=== PATIENT | female | born 1950 | race Caucasian/White ===

== ENCOUNTER → 2016-03-12 | Outpatient (REF) | payer MEDICARE, MEDICAID ==
[~2016-03-12] MED LIST: ADVI200C5 PO; ALBU17IN INH; ARTISOL2 OU; ATEN50TA2 PO; CENTTAB PO; FLUTISP; LORATAB PO; NEXI40CA PO; REST0.05 OU; SIMV40TA2 PO; SYMB16INH INH; TRIC145T PO; VITA1CAP6 PO; VITA400T2 PO; XANA0.25 PO
[2016-03-12 13:24] LABS: MEAN CORPUSCULAR HEMOGLOBIN 32.3 pg (27.0-33.0); MEAN CORPUSCULAR HGB CONC 33.5 g/dl (32.0-36.5); MEAN CORPUSCULAR VOLUME 96.6 fl (80.0-96.0); RED CELL DISTRIBUTION WIDTH 12.6 % (11.5-14.5); WHITE BLOOD COUNT 6.8 K/mm3 (4.0-10.0)
[2016-03-12 14:15] LABS: ALBUMIN 3.7 GM/DL (3.2-5.2); ALBUMIN/GLOBULIN RATIO 0.95 (1.00-1.93); ALKALINE PHOSPHATASE 82 U/L (45-117); ALT/SGPT 52 U/L (12-78); ANION GAP 11 MEQ/L (8-16); AST/SGOT 39 U/L (15-37); BILIRUBIN,TOTAL 0.5 MG/DL (0.2-1.0); BLOOD UREA NITROGEN 15 MG/DL (7-18); CALCIUM LEVEL 8.8 MG/DL (8.8-10.2); CARBON DIOXIDE LEVEL 24 MEQ/L (21-32); CHLORIDE LEVEL 105 MEQ/L (98-107); GLOMERULAR FILTRATION RATE > 60.0 (>45); GLUCOSE, FASTING 99 MG/DL (80-110); POTASSIUM SERUM 4.5 MEQ/L (3.5-5.1); SODIUM LEVEL 140 MEQ/L (136-145); TOTAL PROTEIN 7.6 GM/DL (6.4-8.2)
== END ==
LOC: M SFHCPLAZ 10:27
PROVIDERS: ATTEND Family Medicine
DX: M62.81 Muscle weakness (generalized) (principal); E55.9 Vitamin D deficiency, unspecified
CPT/HCPCS: 36415; 80053; 82306; 84443; 85027; G0463

== ENCOUNTER → 2016-08-03 | Outpatient (CLI) | payer MEDICARE, MEDICAID ==
[~2016-08-03] MED LIST changes: -TRIC145T PO; +TRIC145T22 PO
--- NOTE | 2016-08-05 15:03 | DEXA ---
AP SPINE L1 - L4 1.211 0.1 1.7 LT FEMUR TOTAL 1.026 0.1 1.4 RT FEMUR TOTAL 1.070 0.5 1.8 TOTAL BODY TOTAL OTHER DUAL FEMUR FRAX* ASSESSMENT Risk factors: History of adult fractures. 10 year probability of fracture Major osteoporotic fracture 14.2 % Hip fracture 1.5 % COMMENTS: Normal bone densitometry of the spine. Normal bone densitometry of the right hip. There is low bone density of the left hip. The increased density of the spine does not represent a significant change. The increased density of the left hip does not represent a significant change. The increased density of the right hip does not represent a significant change. The density of the spine has increased 3.2% since the initial exam on 2000. The spine density has increased 1.1% since the most recent exam on 01/04/2012. The density of the left hip has increased 7.2% since the initial exam on 2000. The density of the left hip has increased 1.1% since the most recent exam on 01/2012. The density of the right hip has increased 6.4% since the initial exam on 2000. The density of the right hip has increased 1.8% since the most recent exam on . FOLLOW-UP: Recommendation for the next bone density exam: 2 years. RL
== END ==
LOC: M WHC 11:21
PROVIDERS: ATTEND Family Medicine
DX: Z13.820 Encounter for screening for osteoporosis (principal); M85.88 Other specified disorders of bone density and structure, other site

== ENCOUNTER → 2017-03-17 | Outpatient (REF) | payer MEDICARE, MEDICAID ==
[2017-03-17 13:40] LABS: ANION GAP 5 MEQ/L (8-16); BLOOD UREA NITROGEN 14 MG/DL (7-18); CALCIUM LEVEL 8.8 MG/DL (8.8-10.2); CARBON DIOXIDE LEVEL 30 MEQ/L (21-32); CHLORIDE LEVEL 103 MEQ/L (98-107); CREATININE FOR GFR 0.77 MG/DL (0.55-1.02); GLOMERULAR FILTRATION RATE > 60.0 (>45); GLUCOSE, FASTING 144 MG/DL (70-100); POTASSIUM SERUM 4.6 MEQ/L (3.5-5.1); SODIUM LEVEL 138 MEQ/L (136-145)
== END ==
LOC: M SFHCPLAZ 10:39
DX: I10 Essential (primary) hypertension (principal); E55.9 Vitamin D deficiency, unspecified
CPT/HCPCS: 82306

== ENCOUNTER → 2017-10-26 | Outpatient (CLI) | payer MEDICARE, MEDICAID ==
[2017-10-26 10:08] LABS: ANION GAP 9 MEQ/L (8-16); BLOOD UREA NITROGEN 13 MG/DL (7-18); CALCIUM LEVEL 9.1 MG/DL (8.8-10.2); CARBON DIOXIDE LEVEL 27 MEQ/L (21-32); CHLORIDE LEVEL 104 MEQ/L (98-107); CHOLESTEROL LEVEL 215 MG/DL (<200); CHOLESTEROL RISK RATIO 6.323 (<5); CREATININE FOR GFR 0.81 MG/DL (0.55-1.30); GLOMERULAR FILTRATION RATE > 60.0 (>45); GLUCOSE, FASTING 227 MG/DL (70-100); HDL CHOLESTEROL 34 MG/DL (>40); NON-HDL-C 181 MG/DL; POTASSIUM SERUM 4.1 MEQ/L (3.5-5.1); SODIUM LEVEL 140 MEQ/L (136-145); TRIGLYCERIDES LEVEL 1118 MG/DL (<150)
[2017-10-26 10:12] LABS: MAU/CREAT RATIO 111.1 MCG/MG (0.0-30.0)
[2017-10-26 10:23] LABS: TOTAL 25(OH) VITAMIN D 54.9 NG/ML (30.0-100.0)
== END ==
LOC: M LAB 08:41
DX: E78.5 Hyperlipidemia, unspecified (principal); Z79.899 Other long term (current) drug therapy
CPT/HCPCS: 82306

== ENCOUNTER → 2017-10-29 | Outpatient (CLI) | payer MEDICARE, MEDICAID ==
[2017-10-29 10:48] LABS: ESTIMATED AVERAGE GLUCOSE 226 MG/DL (60-110); HEMOGLOBIN A1c 9.5 %
== END ==
LOC: M LAB 08:21
DX: R73.09 Other abnormal glucose (principal)
CPT/HCPCS: 83036

== ENCOUNTER → 2018-03-21 | Outpatient (CLI) | payer MEDICARE, MEDICAID ==
[2018-03-21 11:51] LABS: HEMOGLOBIN A1c 6.3 %
== END ==
LOC: M LAB 10:28
PROVIDERS: ATTEND Physician Assistant
DX: E11.9 Type 2 diabetes mellitus without complications (principal)

== ENCOUNTER → 2018-03-25 | Outpatient (REF) | payer MEDICARE, MEDICAID ==
[2018-03-25 13:56] LABS: MALB URINE SIEMENS 62.1 MG/L; MAU/CREAT RATIO 41.4 MCG/MG (0.0-30.0)
== END ==
LOC: M SFHCPLAZ 10:49
PROVIDERS: ATTEND Family Medicine
DX: E11.9 Type 2 diabetes mellitus without complications (principal)

== ENCOUNTER → 2018-06-28 | Outpatient (CLI) | payer MEDICARE, MEDICAID ==
[~2018-06-28] MED LIST changes: +FLUT50SP17; -FLUTISP; +GLIP2.5T6 PO
[2018-06-28 10:10] LABS: HEMOGLOBIN A1c 6.3 %
[2018-06-28 10:14] LABS: BLOOD UREA NITROGEN 17 MG/DL (7-18); CALCIUM LEVEL 8.9 MG/DL (8.8-10.2); CARBON DIOXIDE LEVEL 30 MEQ/L (21-32); CHLORIDE LEVEL 105 MEQ/L (98-107); CREATININE FOR GFR 0.81 MG/DL (0.55-1.30); GLOMERULAR FILTRATION RATE > 60.0 (>45); GLUCOSE, FASTING 158 MG/DL (70-100); POTASSIUM SERUM 4.2 MEQ/L (3.5-5.1); SODIUM LEVEL 139 MEQ/L (136-145)
[2018-06-28 10:18] LABS: MALB URINE SIEMENS 81.7 MG/L; MAU/CREAT RATIO 74.9 MCG/MG (0.0-30.0)
== END ==
LOC: M LAB 09:07
PROVIDERS: ATTEND Family Medicine
DX: E11.9 Type 2 diabetes mellitus without complications (principal); I10 Essential (primary) hypertension; R80.9 Proteinuria, unspecified

== ENCOUNTER 2018-07-02 21:09 | Emergency (ER) | payer MEDICARE, MEDICAID ==
[~2018-07-02] VITALS: Ht 152.4 cm; Wt 72.8 kg
[~2018-07-02 21:09] MED LIST changes: -GLIP2.5T6 PO
[2018-07-02] MEDS ORDERED: KETOROLAC 60 MG/2 ML VIAL (J1885) IM ONE (21:45)
[2018-07-02 22:03] VITALS: BP 157/84
--- NOTE | 2018-07-02 22:10 | REPVR ---
EXAM: CT Thoracic Spine Without Contrast EXAM DATE/TIME: 07/02/2018 9:30 PM CLINICAL HISTORY: 68 years old, female; Pain in thoracic spine; Without myelpathy or radiculopathy; Additional info: Trauma TECHNIQUE: Imaging protocol: Axial computed tomography images of the thoracic spine without intravenous contrast. Coronal and sagittal reformatted images were created and reviewed. Radiation optimization: All CT scans at this facility use at least one of these dose optimization techniques: automated exposure control; mA and/or kV adjustment per patient size (includes targeted exams where dose is matched to clinical indication); or iterative reconstruction. COMPARISON: No relevant prior studies available. FINDINGS: Vertebrae: Surgery kyphotic curvature of the thoracic spine. Diffuse degenerative spondylosis. Status post multilevel laminectomy in the mid thoracic spine. Discs/Spinal canal/Neural foramina: Disc space narrowing and intervertebral osteophytes throughout the thoracic spine. Soft tissues: Unremarkable. IMPRESSION: Degenerative spondylosis. No acute findings. Electronically signed by: Johan Lin On 07/02/2018 22:10:16 PM
--- NOTE | 2018-07-02 22:14 | REPVR ---
EXAM: CT Lumbar Spine Without Contrast EXAM DATE/TIME: 07/02/2018 9:30 PM CLINICAL HISTORY: 68 years old, female; Injury or trauma; Fall; Initial encounter; Blunt trauma (contusions or hematomas); Additional info: Trauma fell on tuttle TECHNIQUE: Imaging protocol: Axial computed tomography images of the lumbar spine without intravenous contrast. Coronal and sagittal reformatted images were created and reviewed. Radiation optimization: All CT scans at this facility use at least one of these dose optimization techniques: automated exposure control; mA and/or kV adjustment per patient size (includes targeted exams where dose is matched to clinical indication); or iterative reconstruction. COMPARISON: No relevant prior studies available. FINDINGS: Vertebrae: Shallow levoscoliosis. Otherwise normal alignment. Discs/Spinal canal/Neural foramina: Calcified posterior disc protrusion at L1-2 effaces the ventral subarachnoid space without neural compromise. There is a mild central spinal stenosis at L2-3 secondary to diffuse annular bulging, thickened ligamentum flavum and facet joint arthropathy. Diffuse annular bulge at L5-S1 without neural compromise. Soft tissues: Unremarkable. IMPRESSION: Degenerative spondylosis without acute findings. Electronically signed by: Johan Lin On 07/02/2018 22:14:00 PM
[2018-07-02] MEDS ORDERED: GLIP2.5T6 PO (22:16)
== END 2018-07-02 22:38 | disposition home or self-care (01) ==
LOC: M ED 21:09
DX: S39.012A Strain of muscle, fascia and tendon of lower back, initial encounter (principal); M47.816 Spondylosis without myelopathy or radiculopathy, lumbar region; M51.36 Other intervertebral disc degeneration, lumbar region; M47.814 Spondylosis without myelopathy or radiculopathy, thoracic region; M51.34 Other intervertebral disc degeneration, thoracic region; W01.0XXA Fall on same level from slipping, tripping and stumbling without subsequent striking against object, initial encounter; Y92.89 Other specified places as the place of occurrence of the external cause; E11.9 Type 2 diabetes mellitus without complications; I10 Essential (primary) hypertension; M19.90 Unspecified osteoarthritis, unspecified site; Z88.0 Allergy status to penicillin; Z88.6 Allergy status to analgesic agent; Z79.899 Other long term (current) drug therapy; Z79.51 Long term (current) use of inhaled steroids
CPT/HCPCS: 72128; 72131; 81001; 96372; 99283; J1885

== ENCOUNTER → 2018-10-05 | Outpatient (CLI) | payer MEDICARE, MEDICAID ==
[~2018-10-05] MED LIST changes: +GLIP2.5T6 PO
[2018-10-05 12:09] LABS: BLOOD UREA NITROGEN 18 MG/DL (7-18); CALCIUM LEVEL 8.7 MG/DL (8.8-10.2); CARBON DIOXIDE LEVEL 28 MEQ/L (21-32); CHLORIDE LEVEL 107 MEQ/L (98-107); GLOMERULAR FILTRATION RATE > 60.0 (>45); GLUCOSE, FASTING 106 MG/DL (70-100); POTASSIUM SERUM 4.2 MEQ/L (3.5-5.1); SODIUM LEVEL 142 MEQ/L (136-145)
[2018-10-05 12:20] LABS: CREATININE, URINE 41.5 MG/DL; MALB URINE SIEMENS 37.7 MG/L; MAU/CREAT RATIO 90.8 MCG/MG (0.0-30.0)
[2018-10-05 14:48] LABS: HEMOGLOBIN A1c 6.2 %
== END ==
LOC: M LAB 11:01
PROVIDERS: ATTEND Family Medicine
DX: R80.9 Proteinuria, unspecified (principal); I10 Essential (primary) hypertension; E11.9 Type 2 diabetes mellitus without complications

== ENCOUNTER 2018-11-14 08:34 | Day surgery (SDC) | payer MEDICARE, MEDICAID ==
[~2018-11-14] VITALS: Ht 152.4 cm; Wt 69.9 kg
[~2018-11-14 08:34] MED LIST changes: +CHOL100029 PO; +FLUTISP; +IBUP200C25 PO; +LORA-674 PO; +MULTCAP PO; +PROAAER10 INH; +VITA-158 PO
[2018-11-14] MEDS ORDERED: NS 1,000 ML IV ONE (09:30)
[2018-11-14] MEDS ORDERED: PROPOFOL 200 MG/20 ML VIAL As Ordered ONE ×2 (09:48→10:19)
[2018-11-14] MEDS ORDERED: LIDOCAINE 2% INJ 100 MG/5 ML SDV (FOR ANES.) As Ordered ONE (09:48)
--- NOTE | 2018-11-14 10:14 | ROOR ---
Patient Name: Pamela Moreira Procedure Date: 11/14/2018 9:48 AM Date of : 1950 Age: 68 Room: [facility] Gender: Female Note Status: Finalized Procedure: Upper GI endoscopy Indications: Surveillance procedure, Surveillance for malignancy due to personal history of Aranda's esophagus Providers: Adelfo QUINONES MD Referring MD: Tari Orozco MD Requesting Provider: Medicines: Monitored Anesthesia Care Complications: No immediate complications. Procedure: Pre-Anesthesia Assessment: - The heart rate, respiratory rate, oxygen saturations, blood pressure, adequacy of pulmonary ventilation, and response to care were monitored throughout the procedure. The Endoscope was introduced through the mouth, and advanced to the second part of duodenum. The upper GI endoscopy was accomplished without difficulty. The patient tolerated the procedure well. Findings: A single 9 mm polyp/nodule was found in the mid esophagus (25 cm from incisors). This was biopsied with a cold forceps for histology. There were esophageal mucosal changes secondary to established long-segment Aranda's disease present in the middle third of the esophagus and in the lower third of the esophagus. Other than the esophageal nodule at 25 cm, the rest of the barretts is smooth. The maximum longitudinal extent of these mucosal changes was 10 cm in length. Mucosa was biopsied with a cold forceps for histology from 21 to 31 cm from the incisors. A total of 5 specimen bottles were sent to pathology. Small Hiatal Hernia. The entire examined stomach was normal. The examined duodenum was normal. Impression: - Esophageal polyp/nodularity was found in mid esophagus at 25 cm from incisors. Biopsied. - Esophageal mucosal changes secondary to established long-segment Aranda's esophagus from 21 to 31 cm from incisors. Biopsied. - Small Hiatal Hernia. - Normal stomach. - Normal examined duodenum. Recommendation: - Telephone endoscopist for pathology results in 2 weeks. - Further recommendations will depend on biopsy results. - Use Nexium (esomeprazole) 40 mg twice a day for barretts esophagus indefinitely. Adelfo Quinones MD Adelfo QUINONES MD 11/14/2018 10:14:15 AM Electronically signed by Adelfo QUINONES MD Number of Addenda: 0 Note Initiated On: 11/14/2018 9:48 AM Estimated Blood Loss: Estimated blood loss: none.
[2018-11-14 10:38] VITALS: BP 182/95
== END 2018-11-14 10:38 | disposition home or self-care (01) ==
LOC: M OPP 08:34
PROVIDERS: ATTEND Internal Medicine Gastroenterology
DX: K22.8 Other specified diseases of esophagus (principal); K44.9 Diaphragmatic hernia without obstruction or gangrene; Z79.84 Long term (current) use of oral hypoglycemic drugs; Z79.899 Other long term (current) drug therapy; Z88.0 Allergy status to penicillin; Z88.8 Allergy status to other drugs, medicaments and biological substances; Z91.018 Allergy to other foods

== ENCOUNTER → 2018-11-24 | Outpatient (CLI) | payer MEDICARE, MEDICAID ==
[~2018-11-24] MED LIST changes: +GASTROGRAFIN SOLUTION 30ML (Q9963) As Ordered ONE; +ISOVUE-370 76% 100ML VIAL (Q9967) As Ordered ONE
--- NOTE | 2018-11-24 16:49 | REP ---
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 Benign neoplasm of the pancreas. Mid esophageal adenoma CA. Pancreatic cyst. No comparison chest CT. CT contrast dose: 100 mL of intravenous Isovue 370. CT findings: Thoracic kyphosis is exaggerated. There is degenerative disc disease in the thoracic spine. There is a wedge compression fracture deformity in the T12 vertebral body with healing sclerosis along the superior endplate. No bony destructive lesion is seen. The patient is status post multilevel thoracic laminectomy T5 through T9. There is no evidence of pleural or pericardial effusion. There is a subtle 2 cm length of mural thickening in the middle third of the esophagus just below the level of the azygos venous arch which may correspond with the recent endoscopic findings. No para esophageal adenopathy is appreciated. There are normal appearing solitary lymph nodes in the subcarinal and precarinal region. No mediastinal adenopathy or hilar adenopathy is seen. On lung window settings, there is no significant pulmonary nodule. No mass or infiltrate is seen. Impression: Subtle area of mural thickening in the middle third of the esophagus. No evidence of adenopathy or pulmonary metastatic disease. Electronically Signed by Dk Murry MD 11/25/2018 08:01 A
--- NOTE | 2018-11-24 17:05 | REP ---
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 Comparison CT study and MRI studies are from February and March 2010. CT contrast dose: 100 ml of intravenous Isovue 370. Findings: The liver remains normal in size homogeneous in texture on postcontrast imaging. No adrenal lesion is seen. The spleen contains a hypervascular nodule, 1.4 cm in greatest diameter, similar to the prior study when it measured 1.0 cm in diameter. This may be a small benign hemangioma. The spleen is otherwise unremarkable. The previously noted pancreatic tail lesion has enlarged in the interval since the 2010 study. It currently measures 5.0 x 5.4 x 4.5 cm. A septated cystic appearing morphology is seen with central dystrophic calcifications. Individual cysts range up to 1-1/2 cm in diameter. The septations are arrayed around the central dystrophic calcifications suggesting a central scar. 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 There is no evidence of regional lymphadenopathy. No other pancreatic lesion is seen. No biliary ductal dilation is observed. The kidneys enhance symmetrically are morphologically intact. There is a tiny cortical cyst in the upper pole of the left kidney. Small and large intestinal bowel loops are unremarkable. Impression: The previously noted multiloculated cystic lesion in the pancreatic tail has enlarged in the interval since the 2011 prior study. It has a central scar like morphology with radiating septations and is a central dystrophic calcification pattern consistent with serous cystadenoma of the pancreas, aka microcystic adenoma. There is also a small hypervascular nodule in the spleen which is very slightly larger, 1.4 cm today. Electronically Signed by Dk Murry MD 11/25/2018 08:01 A
== END ==
LOC: M RAD 12:34
PROVIDERS: ATTEND Internal Medicine Gastroenterology
DX: C15.4 Malignant neoplasm of middle third of esophagus (principal); D13.6 Benign neoplasm of pancreas
CPT/HCPCS: 71260; 74170; Q9963; Q9967

== ENCOUNTER → 2019-01-09 | Outpatient (CLI) | payer MEDICARE, MEDICAID ==
[~2019-01-09] MED LIST changes: -GASTROGRAFIN SOLUTION 30ML (Q9963) As Ordered ONE; -ISOVUE-370 76% 100ML VIAL (Q9967) As Ordered ONE
[2019-01-09 10:02] LABS: BASO % 0.7 % (0.0-1.0); EOS # 0.3 10^3/uL (0.0-0.5); EOS % 4.6 % (0.0-3.0); HEMATOCRIT 45.2 % (36.0-47.0); HEMOGLOBIN 14.7 g/dl (12.0-15.5); LYMPH # 0.7 10^3/uL (1.5-5.0); MEAN CORPUSCULAR HEMOGLOBIN 32.3 pg (27.0-33.0); MEAN CORPUSCULAR HGB CONC 32.5 g/dl (32.0-36.5); MEAN CORPUSCULAR VOLUME 99.3 fl (80.0-96.0); MONO # 0.6 10^3/uL (0.0-0.8); MONO % 9.2 % (0.0-5.0); NEUTROPHILS # 4.5 10^3/uL (1.5-8.5); NEUTROPHILS % 72.8 % (36.0-66.0); PLATELET COUNT, AUTOMATED 288 10^3/uL (150-450); RED BLOOD COUNT 4.55 10^6/uL (4.00-5.40); WHITE BLOOD COUNT 6.1 10^3/uL (4.0-10.0)
[2019-01-09 10:38] LABS: ALBUMIN 3.8 GM/DL (3.2-5.2); ALT/SGPT 27 U/L (12-78); BILIRUBIN,TOTAL 0.5 MG/DL (0.2-1.0); BLOOD UREA NITROGEN 16 MG/DL (7-18); CARBON DIOXIDE LEVEL 28 MEQ/L (21-32); CHLORIDE LEVEL 106 MEQ/L (98-107); CREATININE FOR GFR 0.93 MG/DL (0.55-1.30); GLOMERULAR FILTRATION RATE > 60.0 (>45); GLUCOSE, FASTING 151 MG/DL (70-100); POTASSIUM SERUM 4.2 MEQ/L (3.5-5.1); SODIUM LEVEL 143 MEQ/L (136-145); TOTAL PROTEIN 7.9 GM/DL (6.4-8.2)
--- NOTE | 2019-01-10 21:29 | ECGEPIP ---
[facility] Test Date: 2019-01-09 Pat Name: MAHESH HEWITT Department: Room: - Gender: Female [employer] Technician: BRITTANY : 1950 Requested By: Keaton Mora Order Number: [id number] Reading MD: Alberto Mejia Measurements Intervals [place] Rate: 72 P: 59 MT: 151 QRS: 2 QRSD: 142 T: 17 QT: 386 QTc: 425 Interpretive Statements SINUS RHYTHM RIGHT BUNDLE BRANCH BLOCK NO PRIOR TRACING FOR COMPARISON Electronically Signed on 01-10-2019 21:29:03 EST by Alberto Mejia
== END ==
LOC: M LAB 09:12
PROVIDERS: ATTEND Internal Medicine Gastroenterology
DX: K86.2 Cyst of pancreas (principal); K86.9 Disease of pancreas, unspecified; I45.10 Unspecified right bundle-branch block

== ENCOUNTER → 2019-11-13 | Outpatient (CLI) | payer MEDICARE, MEDICAID ==
[~2019-11-13] MED LIST changes: -SIMV40TA2 PO; +SIMV40TA20 PO
[2019-11-13 14:01] LABS: BLOOD UREA NITROGEN 14 MG/DL (7-18); CALCIUM LEVEL 9.3 MG/DL (8.8-10.2); CARBON DIOXIDE LEVEL 28 MEQ/L (21-32); CHLORIDE LEVEL 110 MEQ/L (98-107); GLOMERULAR FILTRATION RATE > 60.0 (>45); GLUCOSE, FASTING 82 MG/DL (70-100); POTASSIUM SERUM 4.4 MEQ/L (3.5-5.1); SODIUM LEVEL 143 MEQ/L (136-145)
[2019-11-13 16:20] LABS: HEMOGLOBIN A1c 5.4 %
== END ==
LOC: M PLALAB 10:48
PROVIDERS: ATTEND Family Medicine
DX: E11.9 Type 2 diabetes mellitus without complications (principal); E87.6 Hypokalemia

== ENCOUNTER → 2019-12-22 | Outpatient (CLI) | payer MEDICARE, MEDICAID | LOC: M LABSMTC 14:28 | PROVIDERS: ATTEND Orthopaedic Surgery | DX: Z01.812 Encounter for preprocedural laboratory examination (principal); Z20.828 Contact with and (suspected) exposure to other viral communicable diseases | CPT/HCPCS: 93005; G0463; U0003 ==

== ENCOUNTER → 2020-03-22 | Outpatient (REF) | payer MEDICARE, MEDICAID | LOC: M SFHCPLAZ 16:48 → EEVIPCON 16:48 | PROVIDERS: ATTEND Physician Assistant | DX: L02.411 Cutaneous abscess of right axilla (principal) ==

== ENCOUNTER → 2020-04-29 | Outpatient (REF) | payer MEDICARE, MEDICAID | LOC: M LAB REF 14:54 | PROVIDERS: ATTEND Physician Assistant | DX: L82.1 Other seborrheic keratosis (principal) | CPT/HCPCS: 11104; 88305; G0463 ==

== ENCOUNTER → 2020-05-13 | Outpatient (CLI) | payer MEDICARE, MEDICAID ==
--- NOTE | 2020-05-13 15:02 | REP ---
INDICATION: RT BREAST PAIN W/ LUMP,MASTITIS WITHOUT ABSCESS. Cellulitis of the right breast. COMPARISON: Comparison mammography April 20, 2018.. TECHNIQUE: Targeted right breast sonography. FINDINGS: There is a focal heterogeneously hypoechoic hyperemic zone in the intradermal region of the right breast and 1 o'clock position 2 cm from the nipple corresponding to the red swollen area seen clinically. I do not see a definite fluid collection. Phlegmon versus early abscess versus other lesion. The lesion appears to be in the dermis. It measures 3.4 by 1.9 cm in transverse dimension by 0.7 cm in thickness. This is nonspecific and clinical follow-up is recommended. IMPRESSION: There is a localized heterogeneous hypoechoic area of dermal thickening in the red swollen area. This is nonspecific. Mastitis/cellulitis versus inflammatory breast carcinoma could have this appearance. Clinical follow-up is advised. Repeat sonography and/or mammography may be warranted depending on clinical course. BI-RADS category 0 incomplete breast imaging. <Electronically signed by Yaakov Murry > 05/13/20 [id number]
== END ==
LOC: M RAD 14:12
PROVIDERS: ATTEND Family Medicine
DX: N61.0 Mastitis without abscess (principal)
CPT/HCPCS: 76642; G0463

== ENCOUNTER → 2020-07-01 | Outpatient (REF) | payer MEDICARE, MEDICAID ==
[2020-07-01 14:43] LABS: BLOOD UREA NITROGEN 14 MG/DL (7-18); CALCIUM LEVEL 10.1 MG/DL (8.8-10.2); CARBON DIOXIDE LEVEL 27 MEQ/L (21-32); CHLORIDE LEVEL 107 MEQ/L (98-107); CHOLESTEROL LEVEL 247 MG/DL (<200); CHOLESTEROL RISK RATIO 5.613 (<5); CREATININE FOR GFR 0.81 MG/DL (0.55-1.30); GLOMERULAR FILTRATION RATE > 60.0 (>39); GLUCOSE, FASTING 97 MG/DL (70-100); HDL CHOLESTEROL 44 MG/DL (>40); NON-HDL-C 203 MG/DL; POTASSIUM SERUM 4.4 MEQ/L (3.5-5.1); SODIUM LEVEL 139 MEQ/L (136-145); TRIGLYCERIDES LEVEL 561 MG/DL (<150)
[2020-07-01 14:47] LABS: TOTAL 25(OH) VITAMIN D 18.9 NG/ML (30.0-100.0)
[2020-07-01 14:50] LABS: HEMOGLOBIN A1c 5.6 %
== END ==
LOC: M SFHCPLAZ 11:06
PROVIDERS: ATTEND Family Medicine
DX: E78.2 Mixed hyperlipidemia (principal); E11.9 Type 2 diabetes mellitus without complications; I10 Essential (primary) hypertension; E55.9 Vitamin D deficiency, unspecified

== ENCOUNTER → 2020-11-07 | Outpatient (CLI) | payer MEDICARE, MEDICAID | LOC: M LABSMTC 10:31 | PROVIDERS: ATTEND Anesthesiology | DX: Z01.812 Encounter for preprocedural laboratory examination (principal); Z20.822 Contact with and (suspected) exposure to COVID-19 ==

== ENCOUNTER 2020-11-11 10:18 | Day surgery (SDC) | payer MEDICARE, MEDICAID ==
[~2020-11-11] VITALS: Ht 152.4 cm; Wt 65.3 kg
[~2020-11-11 10:18] MED LIST changes: +LIDOCAINE 2% 100MG/5ML SDV (FOR ANES.) As Ordered ONE; +NS 1,000 ML IV ONE; +propofoL 200 MG/20 ML VIAL As Ordered ONE
[2020-11-11] MEDS ORDERED: propofoL 200 MG/20 ML VIAL As Ordered ONE (12:33)
--- NOTE | 2020-11-11 12:44 | ROOR ---
Patient Name: Pamela Moreira Procedure Date: 11/11/2020 12:10 PM Date of : 1950 Age: 70 Room: [facility] Gender: Female Note Status: Finalized Procedure: Colonoscopy Indications: Screening for colorectal malignant neoplasm Providers: Adelfo Quinones MD Referring MD: Tari Orozco MD Requesting Provider: Medicines: Monitored Anesthesia Care Complications: No immediate complications. Procedure: Pre-Anesthesia Assessment: - The heart rate, respiratory rate, oxygen saturations, blood pressure, adequacy of pulmonary ventilation, and response to care were monitored throughout the procedure. The Colonoscope was introduced through the anus and advanced to the terminal ileum, with identification of the appendiceal orifice and IC valve. The colonoscopy was performed without difficulty. The patient tolerated the procedure well. The quality of the bowel preparation was adequate. Findings: The perianal and digital rectal examinations were normal. Two sessile polyps were found in the splenic flexure and cecum. The polyps were 5 to 7 mm in size. These polyps were removed with a cold snare. Resection and retrieval were complete. Mild sigmoid diverticulosis and moderate internal hemorrhoids. Impression: - Two 5 to 7 mm polyps at the splenic flexure and in the cecum, removed with a cold snare. Resected and retrieved. - Mild sigmoid diverticulosis and moderate internal hemorrhoids. - The examination was otherwise normal. Recommendation: - Repeat colonoscopy in 5 years for surveillance. Procedure Code(s): --- Professional --- 15749, Colonoscopy, flexible; with removal of tumor(s), polyp(s), or other lesion(s) by snare technique Diagnosis Code(s): --- Professional --- K63.5, Polyp of colon Z12.11, Encounter for screening for malignant neoplasm of colon CPT copyright 2019 [employer]. All rights reserved. The codes documented in this report are preliminary and upon medical record coder review may be revised to meet current compliance requirements. Adelfo Quinones MD Adelfo Quinones MD 11/11/2020 12:44:03 PM Electronically signed by Adelfo Quinones MD Number of Addenda: 0 Note Initiated On: 11/11/2020 12:10 PM Estimated Blood Loss: Estimated blood loss: none.
[2020-11-11 13:22] VITALS: BP 162/90
== END 2020-11-11 13:24 | disposition home or self-care (01) ==
LOC: M OPP 10:18
PROVIDERS: ATTEND Internal Medicine Gastroenterology
DX: Z12.11 Encounter for screening for malignant neoplasm of colon (principal); D12.0 Benign neoplasm of cecum; D12.3 Benign neoplasm of transverse colon; K57.30 Diverticulosis of large intestine without perforation or abscess without bleeding; K64.8 Other hemorrhoids; Z79.84 Long term (current) use of oral hypoglycemic drugs; Z79.899 Other long term (current) drug therapy; Z88.0 Allergy status to penicillin; Z88.6 Allergy status to analgesic agent; Z91.018 Allergy to other foods

== ENCOUNTER → 2021-03-31 | Outpatient (CLI) | payer MEDICARE, MEDICAID ==
[~2021-03-31] MED LIST changes: -LIDOCAINE 2% 100MG/5ML SDV (FOR ANES.) As Ordered ONE; -NS 1,000 ML IV ONE; -propofoL 200 MG/20 ML VIAL As Ordered ONE
[2021-03-31 11:15] LABS: BLOOD UREA NITROGEN 13 MG/DL (7-18); CALCIUM LEVEL 9.5 MG/DL (8.8-10.2); CARBON DIOXIDE LEVEL 24 MEQ/L (21-32); CHLORIDE LEVEL 107 MEQ/L (98-107); CHOLESTEROL LEVEL 203 MG/DL (<200); CHOLESTEROL RISK RATIO 6.151 (<5); CREATININE FOR GFR 0.83 MG/DL (0.55-1.30); GLOMERULAR FILTRATION RATE > 60.0 (>39); GLUCOSE, FASTING 132 MG/DL (70-100); HDL CHOLESTEROL 33 MG/DL (>40); NON-HDL-C 170 MG/DL; POTASSIUM SERUM 4.6 MEQ/L (3.5-5.1); SODIUM LEVEL 140 MEQ/L (136-145); TRIGLYCERIDES LEVEL 905 MG/DL (<150)
[2021-03-31 11:48] LABS: HEMOGLOBIN A1c 6.3 %
[2021-03-31 14:50] LABS: TOTAL 25(OH) VITAMIN D 37.2 NG/ML (30.0-100.0)
== END ==
LOC: M PLALAB 08:38
PROVIDERS: ATTEND Family Medicine
DX: E78.2 Mixed hyperlipidemia (principal); E11.9 Type 2 diabetes mellitus without complications; I10 Essential (primary) hypertension; E55.9 Vitamin D deficiency, unspecified

== ENCOUNTER → 2021-07-30 | Outpatient (CLI) | payer MEDICARE, MEDICAID ==
[2021-07-30 10:50] LABS: HEMOGLOBIN A1c 6.2 %
[2021-07-30 10:53] LABS: MALB URINE SIEMENS 17.1 MG/L; MAU/CREAT RATIO 32.8 MCG/MG (0.0-30.0)
[2021-07-30 11:25] LABS: ALBUMIN 3.5 GM/DL (3.2-5.2); ALT/SGPT 38 U/L (12-78); BILIRUBIN,TOTAL 0.6 MG/DL (0.2-1.0); BLOOD UREA NITROGEN 13 MG/DL (7-18); CARBON DIOXIDE LEVEL 30 MEQ/L (21-32); CHLORIDE LEVEL 106 MEQ/L (98-107); CHOLESTEROL LEVEL 175 MG/DL (<200); CHOLESTEROL RISK RATIO 4.861 (<5); CREATININE FOR GFR 1.15 MG/DL (0.55-1.30); GLOMERULAR FILTRATION RATE 49.5 (>39); GLUCOSE, FASTING 127 MG/DL (70-100); HDL CHOLESTEROL 36 MG/DL (>40); NON-HDL-C 139 MG/DL; POTASSIUM SERUM 4.2 MEQ/L (3.5-5.1); SODIUM LEVEL 139 MEQ/L (136-145); TRIGLYCERIDES LEVEL 547 MG/DL (<150)
== END ==
LOC: M PLALAB 08:22
PROVIDERS: ATTEND Family Medicine
DX: E11.9 Type 2 diabetes mellitus without complications (principal); E78.2 Mixed hyperlipidemia; I10 Essential (primary) hypertension

== ENCOUNTER → 2022-01-13 | Outpatient (CLI) | payer MEDICARE, MEDICAID | LOC: M WHC 09:37 | PROVIDERS: ATTEND Physician Assistant | DX: Z12.31 Encounter for screening mammogram for malignant neoplasm of breast (principal); Z53.9 Procedure and treatment not carried out, unspecified reason ==

== ENCOUNTER → 2023-08-06 | Outpatient (CLI) | payer MEDICARE, MEDICAID ==
[~2023-08-06] MED LIST changes: +LORA-1041 PO; -LORA-674 PO
[2023-08-06 11:16] LABS: BASO % 0.7 % (0.0-1.0); EOS # 0.3 10^3/uL (0.0-0.5); EOS % 5.4 % (0.0-3.0); HEMATOCRIT 42.3 % (36.0-47.0); HEMOGLOBIN 13.9 g/dl (12.0-15.5); LYMPH # 0.7 10^3/uL (1.5-5.0); LYMPH % 12.8 % (24.0-44.0); MEAN CORPUSCULAR HEMOGLOBIN 34.1 pg (27.0-33.0); MEAN CORPUSCULAR HGB CONC 32.9 g/dl (32.0-36.5); MEAN CORPUSCULAR VOLUME 103.7 fl (80.0-96.0); MONO # 0.7 10^3/uL (0.0-0.8); MONO % 12.8 % (2.0-8.0); NEUTROPHILS # 3.9 10^3/uL (1.5-8.5); NEUTROPHILS % 68.1 % (36.0-66.0); PLATELET COUNT, AUTOMATED 286 10^3/uL (150-450); RED BLOOD COUNT 4.08 10^6/uL (4.00-5.40); WHITE BLOOD COUNT 5.7 10^3/uL (4.0-10.0)
[2023-08-06 11:45] LABS: HEMOGLOBIN A1c 6.2 % (4.0-6.0)
[2023-08-06 11:47] LABS: CREATININE, URINE 165.3 MG/DL
[2023-08-06 11:48] LABS: CHOLESTEROL RISK RATIO 3.94 (<5); HDL CHOLESTEROL 40.3 MG/DL (>40); LDL CHOLESTEROL 56.3 MG/DL (<100); MAU/CREAT RATIO 11.4 MCG/MG (0.0-30.0); NON-HDL-C 118.7 MG/DL
[2023-08-06 11:50] LABS: THYROID STIMULATING HORMONE 2.753 uIU/ML (0.55-4.78)
[2023-08-06 11:51] LABS: FREE T4 1.16 NG/DL (0.89-1.76)
== END ==
LOC: M PLALAB 07:56
PROVIDERS: ATTEND Physician Assistant
DX: I10 Essential (primary) hypertension (principal); E55.9 Vitamin D deficiency, unspecified; E11.9 Type 2 diabetes mellitus without complications; E78.2 Mixed hyperlipidemia

== ENCOUNTER → 2023-08-25 | Outpatient (CLI) | payer MEDICARE, MEDICAID | LOC: M WHC 10:48 | PROVIDERS: ATTEND Physician Assistant | DX: Z12.31 Encounter for screening mammogram for malignant neoplasm of breast (principal); M85.851 Other specified disorders of bone density and structure, right thigh; M85.852 Other specified disorders of bone density and structure, left thigh ==

== ENCOUNTER → 2024-04-22 | Outpatient (CLI) | payer MEDICARE, MEDICAID ==
[2024-04-22 11:24] LABS: BASO % 0.8 % (0.0-1.0); EOS # 0.2 10^3/uL (0.0-0.5); EOS % 5.1 % (0.0-3.0); HEMATOCRIT 42.8 % (36.0-47.0); HEMOGLOBIN 13.6 g/dl (12.0-15.5); LYMPH # 0.5 10^3/uL (1.5-5.0); LYMPH % 13.1 % (24.0-44.0); MEAN CORPUSCULAR HEMOGLOBIN 32.7 pg (27.0-33.0); MEAN CORPUSCULAR HGB CONC 31.8 g/dl (32.0-36.5); MEAN CORPUSCULAR VOLUME 102.9 fl (80.0-96.0); MONO # 0.5 10^3/uL (0.0-0.8); MONO % 13.6 % (2.0-8.0); NEUTROPHILS # 2.5 10^3/uL (1.5-8.5); NEUTROPHILS % 67.1 % (36.0-66.0); PLATELET COUNT, AUTOMATED 251 10^3/uL (150-450); RED BLOOD COUNT 4.16 10^6/uL (4.00-5.40); WHITE BLOOD COUNT 3.8 10^3/uL (4.0-10.0)
[2024-04-22 11:46] LABS: HEMOGLOBIN A1c 5.6 % (4.0-6.0)
[2024-04-22 11:50] LABS: ALBUMIN 3.6 G/DL (3.2-5.2); ALKALINE PHOSPHATASE 85 U/L (35-104); ALT/SGPT 39 U/L (7.0-40); AST/SGOT 24 U/L (<34); BILIRUBIN,TOTAL 0.6 MG/DL (0.3-1.2); BLOOD UREA NITROGEN 16 MG/DL (9-23); CALCIUM LEVEL 9.5 MG/DL (8.3-10.6); CARBON DIOXIDE LEVEL 30 MMOL/L (20-31); CHLORIDE LEVEL 103 MMOL/L (98-107); CHOLESTEROL LEVEL 119 MG/DL (<200); CHOLESTEROL RISK RATIO 2.88 (<5); GLOMERULAR FILTRATION RATE > 60.0 (>39); GLUCOSE, FASTING 116 MG/DL (74-106); HDL CHOLESTEROL 41.2 MG/DL (>40); LDL CHOLESTEROL 48.2 MG/DL (<100); NON-HDL-C 77.8 MG/DL; POTASSIUM SERUM 4.6 MMOL/L (3.5-5.1); SODIUM LEVEL 142 MMOL/L (136-145); THYROID STIMULATING HORMONE 1.145 uIU/ML (0.55-4.78); TOTAL PROTEIN 6.8 G/DL (5.7-8.2); TRIGLYCERIDES LEVEL 148 MG/DL (<150)
== END ==
LOC: M LAB 09:11
PROVIDERS: ATTEND Student in an Organized Health Care Education/Training Program
DX: E78.2 Mixed hyperlipidemia (principal); Z13.21 Encounter for screening for nutritional disorder; Z76.89 Persons encountering health services in other specified circumstances; Z13.1 Encounter for screening for diabetes mellitus; F41.9 Anxiety disorder, unspecified; E55.9 Vitamin D deficiency, unspecified

== ENCOUNTER → 2024-08-29 | Outpatient (CLI) | payer MEDICARE, MEDICAID ==
[~2024-08-29] MED LIST changes: +GLIP2.5T46 PO; -GLIP2.5T6 PO
== END ==
LOC: M WHC 13:12
PROVIDERS: ATTEND Nurse Practitioner Family
DX: Z12.31 Encounter for screening mammogram for malignant neoplasm of breast (principal)

== ENCOUNTER → 2024-12-07 | Outpatient (CLI) | payer MEDICARE, MEDICAID ==
[2024-12-07 18:01] LABS: CREATININE FOR GFR 0.87 MG/DL (0.55-1.30); GLOMERULAR FILTRATION RATE 69.9 (>39)
== END ==
LOC: M LAB 16:12
PROVIDERS: ATTEND Otolaryngology
DX: R13.10 Dysphagia, unspecified (principal)

== ENCOUNTER → 2024-12-20 | Outpatient (CLI) | payer MEDICARE, MEDICAID ==
[~2024-12-20] MED LIST changes: +ISOVUE-370 76% 100 ML VIAL As Ordered ONE
== END ==
LOC: M RAD 09:32
PROVIDERS: ATTEND Otolaryngology
DX: J38.01 Paralysis of vocal cords and larynx, unilateral (principal); K86.2 Cyst of pancreas; R13.10 Dysphagia, unspecified
CPT/HCPCS: 70470; 70491; 71260; Q9967

== ENCOUNTER → 2025-01-10 | Outpatient (CLI) | payer MEDICARE, MEDICAID ==
[~2025-01-10] MED LIST changes: +BARIUM SULFATE 700 MG TABLET As Ordered ONE; +E-Z-PAQUE 96% w/w SUSP 176 GM BTL As Ordered ONE; -ISOVUE-370 76% 100 ML VIAL As Ordered ONE; +VARIBAR NECTAR 40% w/v 240ML SUSP BTL As Ordered ONE; +VARIBAR PUDDING 40% w/v 230ML TUBE As Ordered ONE
== END ==
LOC: M RAD 13:25
PROVIDERS: ATTEND Otolaryngology
DX: R13.10 Dysphagia, unspecified (principal)

== ENCOUNTER → 2025-01-30 | Outpatient (CLI) | payer MEDICARE, MEDICAID ==
[~2025-01-30] MED LIST changes: +ACET-683 PO; -BARIUM SULFATE 700 MG TABLET As Ordered ONE; +CYCL1DRO10; -E-Z-PAQUE 96% w/w SUSP 176 GM BTL As Ordered ONE; +FAMO1TAB11; +LISI5TAB11; +LORAPOW30; +MONT10TA97; +OXYB10TA23; +OYST500C PO; +PROHANCE 279.3MG/ML 5ML VIAL ONE; +TRAZ-252; -VARIBAR NECTAR 40% w/v 240ML SUSP BTL As Ordered ONE; -VARIBAR PUDDING 40% w/v 230ML TUBE As Ordered ONE
== END ==
LOC: M PLAIMG 10:51
PROVIDERS: ATTEND Internal Medicine Gastroenterology
DX: K86.2 Cyst of pancreas (principal)
CPT/HCPCS: 74183; A9579

== ENCOUNTER → 2025-02-05 | Outpatient (CLI) | payer MEDICARE, MEDICAID ==
[~2025-02-05] MED LIST changes: -PROHANCE 279.3MG/ML 5ML VIAL ONE
== END ==
LOC: M PLARAD 09:11
PROVIDERS: ATTEND Student in an Organized Health Care Education/Training Program
DX: C25.8 Malignant neoplasm of overlapping sites of pancreas (principal)
CPT/HCPCS: 78815; A9552